=== PATIENT | female | born 1990 | race Caucasian/White ===

== ENCOUNTER 2020-10-07 23:34 | Emergency (ER) | payer OTHER, SELFPAY ==
[2020-10-07 23:37] VITALS: BP 127/84; PULSE 76; RESP 20; TEMP 36.6; O2SAT 96
--- NOTE | 2020-10-07 23:41 | PC.NURSE ---
Pt. requesting Ativan
[2020-10-08] MEDS: TETANUS,DIPHTHERIA,AC PERTUSSIS ADULT (0.5 ML) BOOSTRIX IM (00:08)
--- NOTE | 2020-10-08 00:31 | ED.WOUNDLAC ---
HPI - Wound/Laceration General Chief Complaint: Wound/Laceration Stated Complaint: leg lac Time Seen by Provider: 10/07/20 23:41 History of Present Illness HPI narrative: Patient is a 30-year-old female who presents ER with a laceration to the right gipson. Her cat knocked down a mirror and it broke and she was picking up pieces when she cut herself. There is some exposure of fat. No numbness or tingling. Bleeding controlled. Last tetanus shot was 9 to 10 years ago. Related Data Allergies Allergy/AdvReac Type Severity Reaction Status Date / Time sulfamethoxazole Allergy Swelling Verified 10/07/20 23:39 [From Bactrim] of Lip/Tongue/Throat trimethoprim [From Bactrim] Allergy Swelling Verified 10/07/20 23:39 of Lip/Tongue/Throat Review of Systems Integumentary/Breasts: Skin/Breast: Denies erythema and Denies rash Comments: laceration Neurologic: Denies focal weakness and Denies numbness PMFSH Past Medical History Medical History (Updated 10/08/20 @ 00:40 by Lalit Fraser MD) Bipolar disorder Surgical History Surgical History (Updated 10/08/20 @ 00:36 by Lalit Fraser MD) H/O tubal ligation History of tonsillectomy Social History Social History (Updated 10/08/20 @ 00:36 by Lalit Fraser MD) Smoking status: Current every day smoker Gender identity (if verbalized by the patient): Female Exam Narrative: Exam Narrative: GENERAL: Well-appearing, well-nourished, and in no acute distress. HEAD: Normocephalic, atraumatic. SKIN: Warm, dry. 7 cm laceration with only 4 cm with exposed adipose. NEURO: No focal deficits. Alert and oriented x3. PSYCH: Normal mood and affect. Course Vital Signs Vital signs: Vital Signs Temperature 97.9 F 10/07/20 23:37 Pulse Rate 76 10/07/20 23:37 Respiratory Rate 20 10/07/20 23:37 Blood Pressure 127/84 10/07/20 23:37 Pulse Oximetry 96 10/07/20 23:37 Temperature 97.9 F 10/07/20 23:37 Pulse Rate 76 10/07/20 23:37 Respiratory Rate 20 10/07/20 23:37 Blood Pressure 127/84 10/07/20 23:37 Pulse Oximetry 96 10/07/20 23:37 Procedures Laceration Laceration 1: Date: 10/08/20 Time: 00:37 Side (If applicable): right Size (cm): 4 Description: linear Depth: simple, single layer Local Anesthetic: lidocaine 1% and with epi Amount of anesthesia used (mL): 5 Pre-repair: irrigated ====== Skin Level ====== Skin layer closed with: julianna Number of sutures: 7 ====== Subcutaneous Layer ====== ====== Muscle Layer ====== ====== Tendon Layer ====== Discharge Plan Discharge Clinical Impression: Laceration Patient Disposition: Home, Self-Care Condition: Stable Instructions: Laceration (ED), Staple Care (ED) Additional Instructions: Return to the ER if your room wound is red hot and swollen, it is draining pus, you have additional concerns. Remove your sutures in 10 days. Follow-up/Referrals: Kristopher Javier MD [Physician] - 1 Week PHYSICIAN,DAYTIME CAREGIVER [Primary Care Provider] - None
[2020-10-08 00:40] VITALS: BP 129/88; PULSE 88; RESP 19; O2SAT 97
== END 2020-10-08 00:40 | disposition home or self-care (01) ==
PROVIDERS: Emergency Provider Emergency Medicine
DX: S81.811A Laceration without foreign body, right lower leg, initial encounter (principal); Z23 Encounter for immunization; F17.200 Nicotine dependence, unspecified, uncomplicated; W25.XXXA Contact with sharp glass, initial encounter
CPT/HCPCS: 12002; 90471; 90715; 99282